=== PATIENT | female | born 1960 | race Caucasian/White ===

== ENCOUNTER 2019-05-26 07:33 | Day surgery (SDC) | payer OTHER ==
[~2019-05-26 07:33] MED LIST: CARDURA1 MG PO; JARDIANCE10 MG PO; LEVOTHYROXINE25 MCG PO; LOSARTAN-HCTZ1 EAC2 PO; METFORMIN HCL1000 M1 PO; MONTELUKAST SOD10 MG PO; NEXIUM 24HR20 M1 PO; PRAVASTATIN SOD40 MG PO; TOPROL XL200 MG PO; TYLENOL EXTRA500 MG PO; ZYLOPRIM100 MG PO
[2019-05-26] MEDS ORDERED: TYLENOL EXTRA500 MG PO (12:29)
== END 2019-05-26 17:35 | disposition home or self-care (01) ==
LOC: CIR.AMB 07:33
DX: N84.0 Polyp of corpus uteri (principal)